=== PATIENT | male | born 1995 | race Two or more races ===

== ENCOUNTER 2019-10-12 19:11 | Emergency (ER) | payer OTHER ==
[~2019-10-12] VITALS: Ht 170.2 cm; Wt 90.9 kg
[2019-10-12 20:28] VITALS: BP 142/83
== END 2019-10-12 20:36 | disposition home or self-care (01) ==
LOC: EMS 19:11
DX: J02.9 Acute pharyngitis, unspecified (principal); R05 Cough; R11.0 Nausea; F11.90 Opioid use, unspecified, uncomplicated

== ENCOUNTER → 2024-11-06 | Emergency (ER) | payer OTHER | END | disposition left against medical advice (07) | LOC: EMS 20:36 | DX: F41.9 Anxiety disorder, unspecified (principal); Z53.21 Procedure and treatment not carried out due to patient leaving prior to being seen by health care provider ==